=== PATIENT | female | born 2000 | race Caucasian/White ===

== ENCOUNTER 2020-12-24 16:47 | Emergency (ER) | payer OTHER ==
[~2020-12-24] VITALS: Ht 165.1 cm; Wt 74.9 kg
--- NOTE | 2020-12-24 18:17 | PHYS DOC ---
General Adult EDM: Chief Complaint: WRIST PAIN HPI: HPI: Patient is a 20 year old female who presents to the ED today complaining of mild intermittent right lateral wrist pain, symptoms began today after she fell. Patient describes the pain as sharp. Denies anything specifically exacerbating or relieving the pain. Review of Systems: Review of Systems: Constitutional: Denies fever or chills. [] Musculoskeletal: Reports right wrist pain Integument: Denies rash. [] Neurologic: Denies headache, focal weakness or sensory changes. [] Psychiatric: Denies depression or anxiety. [] Heart Score: C/O Chest Pain: N/A Risk Factors: Risk Factors: DM, Current or recent (<one month) smoker, HTN, HLP, family history of CAD, obesity. Risk Scores: Score 0 - 3: 2.5% MACE over next 6 weeks - Discharge Home Score 4 - 6: 20.3% MACE over next 6 weeks - Admit for Clinical Observation Score 7 - 10: 72.7% MACE over next 6 weeks - Early Invasive Strategies Allergies: Allergies: Allergies Coded Allergies Type Severity Reaction Last Updated Verified No Known Drug Allergies 12/24/20 No Physical Exam: PE: Constitutional: Well developed, well nourished, no acute distress, non-toxic appearance. [] Skin: Warm, dry, no erythema, no rash. [] Back: No tenderness, no CVA tenderness. [] Extremities: Right wrist with no obvious deformity. No scaphoid tenderness. Tenderness on the ulnar aspect of the wrist, full range of motion to the right wrist hand and fingers. Adequate radial, median, ulnar sensation to the right hand. +2 right radial pulse. Cap refill less than 2 seconds of right fingers. Neurologic: Alert and oriented X 3, normal motor function, normal sensory functi on, no focal deficits noted. [] Psychologic: Affect normal, judgement normal, mood normal. [] EKG: EKG: [] Radiology/Procedures: Radiology/Procedures: []PROCEDURE: WRIST 3V RIGHT Exam: Right wrist 3 views INDICATION: Pain TECHNIQUE: Frontal, lateral and oblique views of the right wrist Comparisons: None FINDINGS: Bone mineralization is normal. No acute or healed fractures. Soft tissues are unremarkable. Joint spaces are well-maintained. IMPRESSION: No acute osseous abnormality of the right wrist Electronically signed by: Machelle Alas MD (12/24/2020 6:49 PM) [facility] DICTATED and SIGNED BY: MACHELLE ALAS MD DATE: 12/24/20 [id number] 0 Course & Med Decision Making: Course & Med Decision Making Pertinent Labs and Imaging studies reviewed. (See chart for details) This a 20-year-old female patient presenting to the ED today with right wrist pain that began after she fell. Right wrist x-rays interpreted by radiologist are negative for any acute findings, Rd bandage applied to the right wrist by the ED EMT. Neurovascular exam done by the EMT is normal. Ice elevation encouraged. OTC pain relievers. Follow-up with orthopedic doctor in 1 week Lisbeth Disclaimer: [employer] Disclaimer: This electronic medical record was generated, in whole or in part, using a voice recognition dictation system. Departure Departure Impression: Primary Impression: Fall Qualified Codes: W19.XXXA - Unspecified fall, initial encounter Additional Impression: Right wrist sprain Qualified Codes: S63.501A - Unspecified sprain of right wrist, initial encounter Disposition: HOME / SELF CARE / HOMELESS Condition: STABLE Referrals: NO PCP (PCP) AYANNA WILSON Jr. DO Follow-up in 1 to 2 weeks Patient Instructions: Wrist Sprain with [facility] Additional Instructions: You were seen for right wrist pain, your right wrist x-rays are negative for any acute findings. Ice elevate the extremity. Wear the Rd bandage provided as tolerated and needed. Follow-up with the provided orthopedic doctor in 1 week. Take Tylenol/Motrin for pain ILDA DICKSON APRN Dec 24, 2020 18:17
--- NOTE | 2020-12-24 18:52 | RAD ---
Exam: Right wrist 3 views INDICATION: Pain TECHNIQUE: Frontal, lateral and oblique views of the right wrist Comparisons: None FINDINGS: Bone mineralization is normal. No acute or healed fractures. Soft tissues are unremarkable. Joint spa sarah are well-maintained. IMPRESSION: No acute osseous abnormality of the right wrist Electronically signed by: Machelle Mendez MD (12/24/2020 6:49 PM) [facility]
[2020-12-24 19:15] VITALS: BP 124/92
[2020-12-24] MEDS ORDERED: NAPROXEN 500 MG TABLET PO ONE (19:15)
== END 2020-12-24 19:20 | disposition home or self-care (01) ==
LOC: ER 16:47
DX: S63.501A Unspecified sprain of right wrist, initial encounter (principal); W18.39XA Other fall on same level, initial encounter; Y93.89 Activity, other specified; Y92.89 Other specified places as the place of occurrence of the external cause; Y99.8 Other external cause status
CPT/HCPCS: 73110; 99283

== ENCOUNTER 2021-01-02 11:59 | Emergency (ER) | payer OTHER ==
[~2021-01-02] VITALS: Ht 165.1 cm; Wt 74.9 kg
[2021-01-02 12:12] VITALS: BP 155/118
--- NOTE | 2021-01-02 12:36 | PHYS DOC ---
Past Medical History Additional Past Medical Histor: PCOS Past Surgical History: Other Additional Past Surgical Histo: WISDOM TEETH Smoking Status: Never Smoker Alcohol Use: Occasionally General Adult EDM: Chief Complaint: WRIST PAIN HPI: HPI: Patient is a 20-year-old female presents emergency department concerning ongoing right wrist discomfort. Patient reports falling approximately week and a half ago, was seen here on 24 December and diagnosed with a right wrist contusion, was told to use an Rd wrap for comfort, ice and elevation. Patient reports she has iced some however is not elevated. Patient reports she bumped her wrist against a table today on the area where she is bruised and noticed it hurt more than usual. Patient states she did not bump it very hard and does not feel that she broken any bones, denies numbness or tingling to her hand or wrist or arm. Patient states she would like to have a device to help protect it more. Patient reports her last menstrual cycle was on December 11 with normal duration of flow. Reports taken Metformin and control medications only. Denies need for pain medication, reports her pain is currently a 2 out of 10. Patient denies other physical complaints or physical concerns. Review of Systems: Review of Systems: 14 body systems of review of systems have been reviewed. See HPI for pertinent positives and negative responses, otherwise all other systems are negative, nonpertinent or noncontributory. Constitutional: Negative except as outlined in HPI above. Skin: Negative except as outlined in HPI above. Eyes: Negative except as outlined in HPI above. HENT: Negative except as outlined in HPI above. Respiratory: Negative except as outlined in HPI above. Cardiovascular: Negative except as outlined in HPI above. GI: Negative except as outlined in HPI above. : Negative except as outlined in HPI above. Musculoskeletal: Negative except as outlined in HPI above. Integument: Negative except as outlined in HPI above. Neurologic: Negative except as outlined in HPI above. Endocrine: Negative except as outlined in HPI above. Lymphatic: Negative except as outlined in HPI above. Psychiatric: Negative except as outlined in HPI above. Heart Score: C/O Chest Pain: No Risk Factors: Risk Factors: DM, Current or recent (<one month) smoker, HTN, HLP, family history of CAD, obesity. Risk Scores: Score 0 - 3: 2.5% MACE over next 6 weeks - Discharge Home Score 4 - 6: 20.3% MACE over next 6 weeks - Admit for Clinical Observation Score 7 - 10: 72.7% MACE over next 6 weeks - Early Invasive Strategies Allergies: Allergies: Allergies Coded Allergies Type Severity Reaction Last Updated Verified morphine Allergy Severe tongue swelling 01/02/21 Yes Physical Exam: PE: Constitutional: Well developed, well nourished, no acute distress, non-toxic appearance. 20-year-old female in no apparent distress. HENT: Normocephalic, atraumatic. Eyes: Conjunctiva normal, no discharge. Neck: Normal range of motion, no stridor. Cardiovascular: No cyanosis appreciated, distal cap refill less than 2 seconds. Lungs & Thorax: Patient is in no respiratory distress, no audible adventitious lung sounds appreciated. Abdomen: Nontender, no abnormalities noted. Skin: Warm, dry, no erythema, no rash. See extremity note for focused skin examination. Back: No tenderness, no deformities. Extremities: No tenderness, no cyanosis, no clubbing, ROM intact, no edema. Except for right wrist, patient has light for full contusions to lateral forearm, no swelling or edema appreciated, full active and passive range of motion of wrist and fingers. No loss of sensation, 2+ radial pulse. Distal cap refill is less than 2 seconds. The skin is intact. Neurologic: Alert and oriented X 3, normal motor function, normal sensory function, no focal deficits noted. Psychologic: Affect normal, judgement normal, mood normal. Current Patient Data: Labs: Laboratory Tests Test 01/02/21 12:07 POC Urine HCG, Qualitative Hcg negative (Negative) EKG: EKG: [] Radiology/Procedures: Radiology/Procedures: [] Course & Med Decision Making: Course & Med Decision Making Pertinent Labs and Imaging studies reviewed. (See chart for details) 20-year-old female, vital signs reviewed, presents emergency department concerning ongoing right wrist discomfort after an initial injury from fall on 24 December. Physical examination consistent with contusion of right wrist, area of ecchymosis consistent with initial injury of 24 December. Patient had x-ray imaging of right wrist on the that was negative for acute process, x-ray is not indicated for this visit, patient is here seeking additional protection of her contused wrist and forearm area while healing. Discussed with patient will apply a Velcro wrist splint. Patient has an orthopedist to follow-up with. Discussed RICE therapy with patient. Strict return to ER precautions and concerns, keep appointment with orthopedist. Patient is amenable to ED discharge planning. Discussed with the patient all findings and diagnostic testing as well as the need to follow-up with their primary care provider for further evaluation and treatment or return to the ED if any new or worsening symptoms. Strict return precautions were also discussed at length, the patient voiced understanding and agreement with the discharge planning. The patient was nontoxic in appearance, in no apparent distress, and hemodynamically stable at the time of disposition. [email or web address] Disclaimer: [employer] Disclaimer: This electronic medical record was generated, in whole or in part, using a voice recognition dictation system. Departure Departure Impression: Primary Impression: Contusion of right wrist Qualified Codes: S60.211S - Contusion of right wrist, sequela Disposition: HOME / SELF CARE / HOMELESS Condition: GOOD Referrals: NO PCP (PCP) Patient Instructions: Contusion Additional Instructions: You are seen today in the emergency department for ongoing pain to your right wrist. A Velcro wrist splint was placed for comfort. As we discussed, please continue RICE therapy, this is symptomatic for rest, ice, compression, elevation. Please keep your appointment with your orthopedic surgeon. Return to the emergency department for worsening symptoms or other concerns. Thank you for visiting our Emergency Department. It was a pleasure taking care of you today in the emergency department and we appreciate you trusting us with your care. If any additional problems come up don't hesitate to return to visit us. Please follow up with your primary care provider so they can plan additional care if needed and know about the problem that you had. If symptoms worsen come back to the Emergency Department. Any concerning symptoms that start such as chest pain, shortness of air, weakness or numbness on one side of the body, running high fevers or any other concerning symptoms return to the ER. EMERGENCY DEPARTMENT GENERAL DISCHARGE INSTRUCTIONS Thank you for coming to [facility] Emergency Department (ED) today and trusting us with you care. We trust that you had a positive experience in our Emergency Department. If you wish to speak to the department management, you may call the Director at [phone]. YOUR FOLLOW UP INSTRUCTIONS ARE FOLLOWS: 1. Do you have a private Doctor? If you do not have a private doctor, please ask for a resource list of physicians or clinics that may be able to assist you with follow up care. 2. The Emergency Physicain has interpreted your x-rays. The X-Ray specialist will also review them. If there is a change in the findings, you will be notified in 48 hours when at all possible. 3. A lab test or culture has been done, your results will be reviewed and you will be notified if you need a change in treatment. ADDITIONAL INSTRUCTIONS AND INFORMATION: 1. Your care today has been supervised by a physician who is specially trained in emergency care. Many problems require more than one evaluation for a complete diagnosis and treatment. We recommend that you schedule your follow up appointment as recommended to ensure complete treatment of you illness or injury. If you are unable to obtain follow up care and continue to have a problem, or if your condition worsens, we recommend that you return to the ED. 2. We are not able to safely determine your condition over the phone nor are we able to give sound medical advice over the phone. For these safety reasons, if you call for medical advice we will ask you to come to the ED for further evaluation. 3. If you have any questions regarding these discharge instructions please call the ED at [phone]. SAFETY INFORMATION: In the interest of safety, wellness, and injury prevention; we encourage you to wear your sealbelt, if you smoke; quite smoking, and we encourage family to use a protective helmet for bicycling and other sporting events that present an increased risk for head injury. IF YOUR SYMPTOMS WORSEN OR NEW SYMPTOMS DEVELOP, OR YOU HAVE CONCERNS ABOUT YOUR CONDITION; OR IF YOUR CONDITION WORSENS WHILE YOU ARE WAITING FOR YOUR FOLLOW UP APPOINTMENT; EITHER CONTACT YOUR PRIMARY CARE DOCTOR, THE PHYSICIAN WHOSE NAME AND NUMBER YOU WERE GIVEN, OR RETURN TO THE ED IMMEDIATELY. BAIRON MORAN APRN Jan 02, 2021 12:36
== END 2021-01-02 12:40 | disposition home or self-care (01) ==
LOC: ER 11:59
DX: S60.211A Contusion of right wrist, initial encounter (principal); Z88.5 Allergy status to narcotic agent; W18.39XA Other fall on same level, initial encounter; Y93.89 Activity, other specified; Y92.89 Other specified places as the place of occurrence of the external cause; Y99.8 Other external cause status
CPT/HCPCS: 29125; 81025; 99283